=== PATIENT | male | born 1980 | race African-American/Black ===

== ENCOUNTER 2019-01-21 03:06 | Inpatient (IN) | payer SELFPAY ==
[2019-01-21 03:54] LABS: #Basophils 0.1 thou/uL (0.0-0.2); #Eosinphils 0.2 thou/uL (0.0-0.7); #Lymphocytes 2.1 thou/uL (1.20-3.40); #Monocytes 0.4 thou/uL (0.11-0.59); #Neutrophils 5.8 thou/uL (1.40-6.50); %Basophils 0.6 % (0.0-1.0); %Eosinophils 2.8 % (0.0-10.0); %Lymphocytes 23.9 % (21.0-51.0); %Monocytes 5.1 % (0.0-10.0); %Neutrophils 67.7 % (42.0-75.0); Hemoglobin 13.7 g/dL (14.0-18.0); Mean Corpuscular HGB CONC 32.8 g/dL (32.0-36.0); Mean Corpuscular Hemoglobin 30.9 pg (27.0-31.0); Mean Platelet Volume 11.1 fL (7.4-10.4); Platelet Count 120 thou/uL (130-400); RBC Distribution Width 12.7 % (11.5-14.5); Red Blood Cell (RBC) Count 4.43 mill/uL (4.70-6.10); White Blood Cell (WBC) Count 8.6 thou/uL (4.8-10.8)
[2019-01-21 04:15] LABS: ALT (SGPT) 22 U/L (8-55); AST (SGOT) 21 U/L (5-34); Alkaline Phosphatase 95 U/L (40-150); Anion Gap 11 mmol/L (10-20); BUN (Urea Nitrogen) 18 mg/dL (8.9-20.6); Bilirubin, Total 0.8 mg/dL (0.2-1.2); Calc. Creatinine Clearance 0 mL/min (70-130); Calcium 9.6 mg/dL (7.8-10.44); Carbon Dioxide 28 mmol/L (22-29); Chloride 102 mmol/L (98-107); Estimated GFR-MDRD 51; Glucose 129 mg/dL (70-105); Potassium 3.4 mmol/L (3.5-5.1); Sodium 138 mmol/L (136-145)
[2019-01-21 04:42] LABS: CKMB 1.8 ng/mL (0-6.6)
[2019-01-21] MEDS ORDERED: hydrALAZINE 20 MG/ML VIAL ONE (05:56)
[2019-01-21] MEDS ORDERED: Ondansetron ODT 4 MG TAB PO PRN (05:58)
[2019-01-21] MEDS ORDERED: Nicotine 14 MG PATCH TD PRN (05:58)
--- NOTE | 2019-01-21 05:58 | PDOC.FPRHP ---
- History of Present Illness Chief Complaint: SOB History of Present Illness: 38 yo M with PMH untreated HTN due to noncompliance presents to the ED with SOB and found to have significant HTN. 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 At home started to feel dizzy, went to bed. Awoke and noted SOB and chest tightness with exertion. Denies headache, vision changes, N/V. ED Course: Hydralazine 20 mg IV - Allergies/Adverse Reactions Allergies Allergy/AdvReac Type Severity Reaction Status Date / Time No Known Drug Allergies Allergy Unverified 01/21/19 06:07 - History PMHx: HTN PSHx: None FHx: HTN, sister-DM Social: Current smoker, 3/4 PPD x 17 yrs. No alcohol or drug use. - Review of Systems General: reports: other (dizziness). denies: fatigue Eyes: denies: vision changes Respiratory: reports: shortness of breath, exercise intolerance. denies: cough Cardiovascular: reports: chest pain. denies: palpitation, edema Gastrointestinal: denies: nausea, vomiting, diarrhea, constipation Genitourinary: denies: dysuria Skin: denies: rashes, lesions Musculoskeletal: denies: pain, tenderness Neurological: denies: syncope, weakness - Vital signs BP: 242/152 HR: 106 RR: 21 Tmax: 99.2 Pox: 94% on 2L Wt: 108 kg - Physical Exam Constitutional: NAD, awake, alert and oriented HEENT: normocephalic and atraumatic, PERRLA, EOMI, grossly normal vision, grossly normal hearing, MMM Heart: RRR, normal S1/S2, no murmurs/rubs/gallops, no edema Lungs: CTAB, no respiratory distress, no wheezing Abdomen: soft, non-tender, bowel sounds present, no masses/distention Musculoskeletal: normal structure, normal tone Neurological: no focal deficit Skin: no rash/lesions, good turgor FMR H&P: Results - Labs Result Diagrams: 01/21/19 03:47 01/21/19 03:47 Lab results: WBC 8.6 thou/uL (4.8-10.8) 01/21/19 03:47 Hgb 13.7 g/dL (14.0-18.0) L 01/21/19 03:47 Hct 41.6 % (42.0-52.0) L 01/21/19 03:47 MCV 94.0 fL (78.0-98.0) 01/21/19 03:47 Plt Count 120 thou/uL (130-400) L 01/21/19 03:47 Neutrophils % 67.7 % (42.0-75.0) 01/21/19 03:47 Sodium 138 mmol/L (136-145) 01/21/19 03:47 Potassium 3.4 mmol/L (3.5-5.1) L 01/21/19 03:47 Chloride 102 mmol/L (98-107) 01/21/19 03:47 Carbon Dioxide 28 mmol/L (22-29) 01/21/19 03:47 BUN 18 mg/dL (8.9-20.6) 01/21/19 03:47 Creatinine 1.80 mg/dL (0.7-1.3) H 01/21/19 03:47 Glucose 129 mg/dL (70-105) H 01/21/19 03:47 Calcium 9.6 mg/dL (7.8-10.44) 01/21/19 03:47 Total Bilirubin 0.8 mg/dL (0.2-1.2) 01/21/19 03:47 AST 21 U/L (5-34) 01/21/19 03:47 ALT 22 U/L (8-55) 01/21/19 03:47 Alkaline Phosphatase 95 U/L (40-150) 01/21/19 03:47 CK-MB (CK-2) 1.8 ng/mL (0-6.6) 01/21/19 03:47 Serum Total Protein 7.0 g/dL (6.0-8.3) 01/21/19 03:47 Albumin 4.0 g/dL (3.5-5.0) 01/21/19 03:47 FMR H&P: A/P - Problem List (1) Hypertensive emergency Current Visit: Yes Status: Acute Code(s): I16.1 - HYPERTENSIVE EMERGENCY (2) Elevated d-dimer Current Visit: Yes Status: Acute Code(s): R79.89 - OTHER SPECIFIED ABNORMAL FINDINGS OF BLOOD CHEMISTRY - Plan HTN urgency vs emergency - BP 240s/150s in ED. Has hydralazine ordered in ED but nothing has been given yet - currently asymptomatic - will see response to hydralazine and see if BP responds. May need to start on drip if resistant. Goal BP 200/100 for now. - check BP q1h - start chlorthalidone, patient could likely need second BP agent before discharge Hypokalemia - 3.4, will replace Elevated D-dimer - 1.43, will get CTA Indeterminate troponin - 0.044, will continue to trend - EKG with LVH and t wave inversion OBDULIO - Cr 1.8, monitor on am labs - likely 2/2 above Diet: HH Ppx: Lovenox PCP: none Dispo: admit to IMCU for close BP monitoring Case discussed with Dr. Marinelli. FMR H&P: Upper Level - Pertinent history 38 yo AAM who presents to ED with SOB and dizziness with mild exertional chest pain from home. He got off work at around midnight and when he got home did not feel well. He laid down for a bit thinking it would pass and it did not. At that time he decided to come in. He had otherwise been feeling well and denies any constitutional symptoms. He has prior dx of HTN and was on medications but stopped them when he moved here from [place]. Denies any vision changes, headache or current chest pain or shortness of breath. - Pertinent findings VS reviewed, hypertensive, intermittently tachycardic CXR reviewed: borderline cardiomegaly EKG: LVH, sinus tachcyardia, QTc 498 Gen: awake, alert, in no distress HEENT: NCAT, MMM, PERRL, EOMI, conjunctiva non-injected, optic disk not well seen, no visual field deficits CV: RRR, no murmur noted RESP: CTAB ABD: Soft, NTND EXT: no edema, pulses 2+ throughout Labs reviewed: indeterminate troponin, elevated Cr - Plan Date/Time: 01/21/19 0558 38 yo AAM with PMHx presents with hypertensive urgency vs. emergency 1. Hypertensive urgency vs. emergency - No neurologic deficits or ongoing symptoms - Unknown Cr baseline however indeterminate troponin likely 2/2 demand ischemia - Awaiting response to initial dose of hydralazine given in ED - If minimal to no improvement, will consider cardene drip and transfer to ICU - q30 minute BPs at this time - EKG shows LVH - Acute goal to lower 10-20% in first hour then 5-15% over subsequent 23 hours - Asymptomatic at this time 2. HTN - Known dx - Will start thiazide diuretic and consider addition of CCB if indicated 3. Elevated troponin - Will trend - No chest pain - Likely 2/2 demand ischemia 4. Elevated D-dimer - No symptoms at this time - Will plan for CTA when BP acutely managed Please see Dr. Pal's note for remainder of A/P I, Ricarda He MD, PGY-3, have evaluated this patient and agree with findings/ plan as outlined by corporate communications intern resident. Pertinent changes/additions are listed here.
[2019-01-21] MEDS ORDERED: Potassium Chloride 20 MEQ TAB PO SCH (07:15)
[2019-01-21] MEDS ORDERED: Labetalol HCl 100 MG/20 ML VIAL ONE (07:39)
[2019-01-21 07:46] LABS: Troponin I 0.065 ng/mL (< 0.028)
--- NOTE | 2019-01-21 07:48 | CT ---
CT arteriogram chest with IV contrast and 3-D imaging HISTORY: Chest pain. Dyspnea. FINDINGS: Good contrast opacification of the pulmonary arteries and thoracic aorta with normal branch ing of the great vessels. Nonenlarged, nonspecific lymph nodes are scattered about the mediastinum. Minimal atelectasis left upper lobe adjacent to the major fissure. No pleural fluid or pneumothorax. IMPRESSION: No CT evidence of pulmonary embolus.
--- NOTE | 2019-01-21 08:11 | RAD ---
PORTABLE CHEST ONE VIEW: Date: 01-21-19 Time: 3:43 a.m. History: Difficulty breathing. FINDINGS: Comparison made with exam of 01-19-11. The heart size is normal. The lungs are expanded without focal areas of consolidation, pneumothorax o r pleural effusions. There is continued mild elevation of the right hemidiaphragm. IMPRESSION: No acute process. POS: OFF
[2019-01-21] MEDS ORDERED: Chlorthalidone 25 MG TAB PO SCH (09:00)
[2019-01-21] MEDS ORDERED: Amlodipine 5 MG TAB PO SCH (09:00)
[2019-01-21] MEDS: Enoxaparin Sodium 40 MG/0.4 ML SYRINGE SC SCH (09:54)
[2019-01-21 10:35] LABS: Troponin I 0.068 ng/mL (< 0.028)
[2019-01-21] MEDS ORDERED: ISOVUE-370 76%-LOCM 1 ML ONE (10:58)
[2019-01-21 11:44] VITALS: BMI 41.6
--- NOTE | 2019-01-21 12:00 | PDOC.EVN ---
Event Note - Event Note Event Note: Discussed BP parameters 160/90s, not any lower.l Use antihypertensives PRN. Started on oral anti Htnsives. BP q1hr checks
--- NOTE | 2019-01-21 13:10 | ULT ---
Bilateral renal ultrasound CLINICAL INDICATION: Hypertensive emergency COMPARISON: None. FINDINGS: Right kidney: There is no evidence of a renal mass, renal calculus, or hydronephrosis seen. The right kidney measures 12 cm in length. Left kidney: There is no evidence of a renal mass, calculus, hydronephrosis. The left kidney measures 11 cm in length. Urinary bladder: Within normal limits for degree of distention. IMPRESSION: No evidence of hydronephrosis or renal cortical thinning.
[2019-01-21 13:18] LABS: Amphetamine Not Detected (NotDetected); Barbiturates Screen Not Detected (NotDetected); Benzodiazepine Screen Not Detected (NotDetected); Cocaine Metabolite Screen Not Detected (NotDetected); Medtox Control Line Valid? VALID (VALID); Medtox Reader # READER 1; Methadone Not Detected (NotDetected); Methamphetamine Not Detected (NotDetected); Opiate Screen Not Detected (NotDetected); Oxycodone Screen Not Detected (NotDetected); Phencyclidine (PCP) Not Detected (NotDetected); THC/Cannabinoid Screen Not Detected (NotDetected); Tricyclic Screen Not Detected (NotDetected)
[2019-01-21] MEDS: hydrALAZINE 20 MG/ML VIAL SLOW IVP PRN ×2 (14:29→15:43)
[2019-01-21 16:35] LABS: Troponin I 0.107 ng/mL (< 0.028)
[2019-01-21] MEDS: Acetaminophen 325 MG TAB PO PRN ×2 (17:25→23:18)
[2019-01-21] MEDS: Labetalol HCl 100 MG/20 ML VIAL SLOW IVP PRN ×2 (17:25→23:18)
--- NOTE | 2019-01-21 17:49 | HP ---
HISTORY OF PRESENT ILLNESS: I have examined the patient. I have discussed the case with Dr. Shirley Pal and agree with her assessment and plan. Briefly, Mr. Bae is a 38-year-old black man, who presented to our emergency room with a blood pressure of around 280/140. He felt dizzy and short of breath, and possibly had some chest tightness with exertion. In the event, he came to our ER and was subsequently admitted with at least hypertensive urgency. PHYSICAL EXAMINATION: VITAL SIGNS: His blood pressure initially was 240/150. His heart rate was 100. His temperature was 99.2 and his room air pulse ox was 94% on 2 L. GENERAL: By the time I examined the patient, he was awake and alert, still appearing with some mild shortness of breath, but no chest pain or tightness. He was completely alert and showing no signs of encephalopathy. EAR, NOSE, AND THROAT: Moist mucous membranes. No erythema or exudate is noted. NECK: Supple. CARDIAC: The PMI is in the fifth intercostal space. No gallop or murmur noted. LUNGS: Clear with no rales or wheezing. No use of accessory muscles. ABDOMEN: Flat and soft. No guarding, rebound, or rigidity. EXTREMITIES: No edema. NEUROLOGICAL: No focal deficits. LABORATORY DATA: CBC; white count is 8600, hemoglobin 13.7, hematocrit 41.6 with an MCV of 94. Chemistries; sodium 138, potassium 3.4, chloride 102, bicarb 28, BUN 18, creatinine 1.8, random glucose of 129. Troponins trended to 0.044 to 0.065 to 0.068, consistent likely with stress ischemia. His chest x-ray showed no acute process and normal heart size. CTA of the chest gotten for an elevated D-dimer did not show any evidence of pulmonary embolism. ASSESSMENT: Hypertensive urgency. PLAN: Admit to MICU, use parenteral p.r.n. medications as well as aggressive p.o. medications for his hypertension. Our goal for today is to get his pressure down around between 160 and 190 systolic. Job ID: [id number]
[2019-01-21] MEDS ORDERED: Hydrochlorothiazide 25 MG TAB PO SCH (21:00)
--- NOTE | 2019-01-22 01:25 | CON ---
DATE OF CONSULTATION: HISTORY OF PRESENT ILLNESS: Mr. Bae is a 38-year-old male who was told when he was in [place] 2 years ago that he had hypertension. He was given medicine back them, but never refilled any medicine and has not seen anybody locally. He presented with complaints of shortness of breath after getting off work as well some tight chest tightness. He subsequently was admitted with significant blood pressure elevations up to 242/152. CT angiogram was done showing no pulmonary emboli. He had no pulmonary edema. Renal ultrasound was done showing no cortical abnormalities or obstructive uropathy. He says he has been healthy prior to this. PAST MEDICAL HISTORY: Otherwise, unremarkable. FAMILY HISTORY: Positive for hypertension. SOCIAL HISTORY: He smokes, does not use drugs, does not drink. REVIEW OF SYSTEMS: Otherwise negative. PHYSICAL EXAMINATION: VITAL SIGNS: Blood pressure this afternoon is 196/114. He is afebrile. Heart rate in the 90s. HEENT: Pupils are equal sclerae is anicteric. Extraocular movements are intact. NECK: Supple. No lymphadenopathy. LUNGS: Clear. HEART: Regular rhythm. S1, S2 are normal. ABDOMEN: Soft and nontender. EXTREMITIES: Without clubbing, cyanosis, or edema. NEUROLOGIC: Grossly nonfocal. LABORATORY DATA: White count 8.6, hemoglobin 13.7, platelets 120,000. Sodium 138, potassium 3.4, chloride 102, bicarb 28, BUN 18, creatinine 1.8 at 3:47 am this morning. BNP was 256. IMPRESSION: Accelerated hypertension with symptoms likely related to untreated blood pressure issues. He is on a tiny dose of hydrochlorothiazide and starting dose of amlodipine. This is unlikely to control his blood pressure and q.a.m. drugs are very unlikely to control this. We would suggest more aggressive attempts at getting started on a medication regimen and try to get his blood pressure down between 140 and 170 systolic. I suspect we will see a rising creatinine as his blood pressure comes down. It is imperative that he find a local physician to care for his blood pressure. TIME SPENT: This is a 70-minute consult, 50% of the time spent in coordinating care. Job ID: [id number]
[2019-01-22] MEDS: Labetalol HCl 100 MG/20 ML VIAL SLOW IVP PRN (04:11)
[2019-01-22 05:37] LABS: ALT (SGPT) 22 U/L (8-55); AST (SGOT) 18 U/L (5-34); Albumin 3.8 g/dL (3.5-5.0); Alkaline Phosphatase 82 U/L (40-150); Anion Gap 13 mmol/L (10-20); BUN (Urea Nitrogen) 15 mg/dL (8.9-20.6); Calc. Creatinine Clearance 82 mL/min (70-130); Carbon Dioxide 28 mmol/L (22-29); Chloride 101 mmol/L (98-107); Estimated GFR-MDRD 50; Globulin 2.7 g/dL (2.4-3.5); Glucose 101 mg/dL (70-105); Protein, Total 6.5 g/dL (6.0-8.3); Sodium 139 mmol/L (136-145)
[2019-01-22] MEDS ORDERED: Potassium Chloride 40 MEQ in Premix Bag 1 BAG IVPB SCH (07:30)
[2019-01-22 08:13] LABS: CKMB 1.9 ng/mL (0-6.6)
[2019-01-22] MEDS ORDERED: Amlodipine 5 MG TAB PO SCH (08:42)
--- NOTE | 2019-01-22 08:48 | PDOC.FM ---
- Subjective Subjective: NAEO. Mild WYNNE with medications, denes SOB, CP, vision changes - Objective MAR Reviewed: Yes Vital Signs & Weight: Vital Signs (12 hours) Temp Pulse BP 01/22/19 07:08 98.6 F 01/22/19 04:11 90 195/123 H 01/22/19 04:00 98.8 F 01/22/19 00:00 99.7 F H 01/21/19 23:18 97 189/116 H Weight Weight 108 kg Most Recent Monitor Data Heart Rate from ECG 75 NIBP 167/109 NIBP BP-Mean 128 Respiration from ECG 17 SpO2 91 I&O: 01/21/19 01/22/19 01/23/19 06:59 06:59 06:59 Intake Total 500 Balance 500 Result Diagrams: 01/21/19 03:47 01/22/19 04:55 Phys Exam - Physical Examination Constitutional: NAD HEENT: PERRLA, moist MMs Neck: no nodes, full ROM Respiratory: no wheezing, clear to auscultation bilateral Cardiovascular: RRR s4 Neurological: non-focal, moves all 4 limbs Psychiatric: normal affect, A&O x 3 Dx/Plan (1) Chronic hypertension Code(s): I10 - ESSENTIAL (PRIMARY) HYPERTENSION Status: Acute (2) Hypertensive emergency Code(s): I16.1 - HYPERTENSIVE EMERGENCY Status: Acute - Plan Plan: HTN urgency - Emergency resolved, asx - BPs still uncontrolled, requiring IV meds - Inc qAM po meds of amlodipine & HCTZ - Continue BP q1hr Hypokalemia - 3.0 will replace -Start on po potassium if remains low Elevated D-dimer - CTA, neg for PE Indeterminate troponin - 0.2 --> will rpt one now, if elevated get EKG - EKG with LVH and t wave inversion OBDULIO vs CKD - Cr 1.8, monitor on am labs, stable Diet: HH Ppx: Lovenox PCP: none Dispo: BP control, if unimproved this morning, willl add third hypertensive, inc current dosing Case discussed with Dr. Marinelli.
[2019-01-22] MEDS ORDERED: Hydrochlorothiazide 25 MG TAB PO SCH (09:00)
[2019-01-22] MEDS: Amlodipine 10 MG TAB PO SCH (09:37)
[2019-01-22] MEDS: Enoxaparin Sodium 40 MG/0.4 ML SYRINGE SC SCH (09:38)
[2019-01-22 09:52] LABS: #Eosinphils 0.1 thou/uL (0.0-0.7); #Lymphocytes 1.5 thou/uL (1.20-3.40); #Monocytes 0.6 thou/uL (0.11-0.59); #Neutrophils 6.3 thou/uL (1.40-6.50); %Basophils 0.3 % (0.0-1.0); %Eosinophils 1.3 % (0.0-10.0); %Lymphocytes 17.8 % (21.0-51.0); %Monocytes 6.4 % (0.0-10.0); %Neutrophils 74.1 % (42.0-75.0); Mean Corpuscular HGB CONC 32.1 g/dL (32.0-36.0); Mean Corpuscular Hemoglobin 29.9 pg (27.0-31.0); Mean Corpuscular Volume 93.2 fL (78.0-98.0); Mean Platelet Volume 11.1 fL (7.4-10.4); Platelet Count 125 thou/uL (130-400); RBC Distribution Width 12.9 % (11.5-14.5); Red Blood Cell (RBC) Count 4.35 mill/uL (4.70-6.10); White Blood Cell (WBC) Count 8.6 thou/uL (4.8-10.8)
[2019-01-22 09:58] LABS: Hemoglobin A1c 4.4 % (4.0-6.0)
[2019-01-22 10:22] LABS: Cardiac Risk 3.9 (Less than 4.5)
[2019-01-22] MEDS ORDERED: Potassium Chloride 20 MEQ TAB PO SCH (10:30)
[2019-01-22] MEDS: cloNIDine 0.2 MG TAB PO SCH ×2 (11:30→21:21)
[2019-01-22 11:52] LABS: CKMB 1.9 ng/mL (0-6.6)
[2019-01-22] MEDS: Potassium Chloride 20 MEQ in Premix Bag 1 BAG IVPB SCH (12:27)
--- NOTE | 2019-01-22 13:44 | PRG ---
DATE OF SERVICE: 01/22/2019 SUBJECTIVE: Mr. Bae's blood pressure is still elevated. We are adjusting his medications daily. We had been trending his troponins and they have now risen until to the very lowest NSTEMI area. We will consult Cardiology. He has had no chest pain since admission to the hospital. Otherwise, stable. We will await recommendations from Cardiology. We will continue to adjust blood pressure medication with a goal of at least 160/90 or less. Job ID: [id number]
--- NOTE | 2019-01-22 14:11 | PRG ---
DATE OF SERVICE: 01/22/2019 SUBJECTIVE: Phil Bae is still having significant elevations of blood pressure. Added Catapres to be given this morning with his Norvasc. This morning, he was 190/119. After lunch, he was 169/104. We will probably need to continue with aggressive medication adjustments. He is not having any pulmonary symptoms. Denies shortness of breath. His lungs are clear. White count is normal, hemoglobin is normal, and platelets 125,000. Electrolytes remarkable for potassium of 3, this can be replaced orally. His creatinine is 1.83 and 1.80 yesterday, which is essentially unchanged. We will continue to follow. Job ID: [id number]
--- NOTE | 2019-01-22 16:44 | CON ---
DATE OF CONSULTATION: 01/22/2019 REASON FOR CONSULTATION: Hypertensive emergency. HISTORY OF PRESENT ILLNESS: Mr. Bae is a pleasant 38-year-old white gentleman, who comes to the hospital for increased shortness of breath. When he came in, his blood pressure was 260/130s. He received IV hydralazine and labetalol, got it down, and admitted for further evaluation. During his hospital stay, we have managed to up titrate his blood pressure medications to the point where the blood pressure on my evaluation is 130s/70s. He feels back to normal. He denies any chest pain, tightness or pressure. He only had shortness of breath when he came in. 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 PAST MEDICAL HISTORY: Hypertension. PAST SURGICAL HISTORY: None. FAMILY HISTORY: Hypertension and a sister with diabetes. SOCIAL HISTORY: Smokes 3/4 of pack a day for the last 17 years. No drug use. No alcohol. REVIEW OF SYSTEMS: A 12-point review of systems was done and was found to be negative unless stated in the history of present illness. OUTPATIENT MEDICATIONS: None. ALLERGIES: NO KNOWN DRUG ALLERGIES. PHYSICAL EXAMINATION: VITAL SIGNS: Temperature 98.2, pulse 76, respiratory rate 21, sat 94% on 3 L, and blood pressure 132/83. GENERAL: Awake, alert, and oriented x3, in no distress. HEENT: Normocephalic and atraumatic. NECK: Supple. LUNGS: Clear. CARDIOVASCULAR: S1 and S2. No S3 or S4. No murmurs. No rubs. ABDOMEN: Soft. Positive bowel sounds. EXTREMITIES: No edema. SKIN: Warm and dry. LABORATORY DATA: Laboratory work was reviewed. Toxicology, UDS was negative. Hematology with a white count of 8.6, hemoglobin of 13, hematocrit of 40, and platelet count of 125. Coags, D-dimer was elevated. Chemistries were unremarkable. Potassium is 3.0. Hemoglobin A1c is 4.4. Troponin was 0.28 and 0.14 with a normal CK-MB and triglycerides of 78. Cholesterol total of 137, LDL of 86, and HDL of 35. Creatinine is actually at baseline at 1.[address] angio of the chest showed no evidence of pulmonary embolism. ASSESSMENT: Hypertensive emergency. PLAN: Current regimen is adequate. Blood pressure is much better currently. Clonidine actually did the trick. This is scheduled at every 2 hours. 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 Otherwise, I would continue the other medications. Echocardiogram is pending. Thank you for letting me to participate in the care of your patient. We will follow. Job ID: [id number]
[2019-01-22] MEDS ORDERED: Atorvastatin Calcium 20 MG TAB PO SCH (21:00)
[2019-01-22] MEDS ORDERED: Simvastatin 40 MG TAB PO SCH (21:00)
[2019-01-22] MEDS: Hydrochlorothiazide 25 MG TAB PO SCH (21:21)
--- NOTE | 2019-01-23 06:44 | PDOC.FM ---
- Subjective Subjective: Pt doing well. Denies WYNNE, chest pain, vision changes, SOB. Ready to go home. - Objective MAR Reviewed: Yes Vital Signs & Weight: Vital Signs (12 hours) Temp BP 01/23/19 03:52 97.6 F 01/22/19 23:42 98.0 F 01/22/19 21:21 157/107 H 01/22/19 19:35 97.6 F Weight Weight 108 kg Most Recent Monitor Data Heart Rate from ECG 78 NIBP 143/90 NIBP BP-Mean 107 Respiration from ECG 17 SpO2 94 I&O: 01/21/19 01/22/19 01/23/19 06:59 06:59 06:59 Intake Total 500 1360 Balance 500 1360 Result Diagrams: 01/23/19 06:03 01/23/19 06:03 Phys Exam - Physical Examination Constitutional: NAD HEENT: PERRLA, moist MMs Respiratory: no wheezing, clear to auscultation bilateral Cardiovascular: RRR, no significant murmur Gastrointestinal: soft, non-tender Neurological: non-focal, moves all 4 limbs Psychiatric: normal affect, A&O x 3 Dx/Plan (1) Hypertensive emergency Code(s): I16.1 - HYPERTENSIVE EMERGENCY Status: Resolved (2) Chronic hypertension Code(s): I10 - ESSENTIAL (PRIMARY) HYPERTENSION Status: Chronic (3) CKD (chronic kidney disease) stage 3, GFR 30-59 ml/min Code(s): N18.3 - CHRONIC KIDNEY DISEASE, STAGE 3 (MODERATE) Status: Acute (4) Dyslipidemia Code(s): E78.5 - HYPERLIPIDEMIA, UNSPECIFIED Status: Acute - Plan Plan: #Hypertensive emergency, resolved - Had not required IV antihypertensives >24 hours - BPs stable <160/<110 on clonidine, hctz, and amlodipine - Pending transfer out of tele to floors - Pending TTE for further eval - Had discussion with patient about AE of noncompliance with clonidine. Expresses motiviation to take meds daily with routine follow up. #cHTN -see above #Hypokalemia - 3.2, will start on IV potassium maintenance #CKD, stage 3 -Creatinine 1.83, stable -Likely CKD 2/2 uncontrolled and untreated HTN #Elevated D-dimer - CTA, neg for PE #Indeterminate troponin - EKG yesterday wnl, troponins trending donw - Likely 2/2 to demand ischemia, poor LV myoperfusion with LVH Diet: HH Ppx: Lovenox PCP: none Dispo: BP well controlled for past 20 hours on PO meds. Patient says taking BID meds not a problem with work schedule. Understands AE if noncompliant with clonidine. Agrees for f/u at our office. Will provide contact information. Possible d/c today pending clinical course. Case discussed with Dr. Marinelli.
[2019-01-23 06:51] LABS: #Basophils 0.1 thou/uL (0.0-0.2); #Eosinphils 0.3 thou/uL (0.0-0.7); #Lymphocytes 1.7 thou/uL (1.20-3.40); #Monocytes 0.6 thou/uL (0.11-0.59); #Neutrophils 4.6 thou/uL (1.40-6.50); %Basophils 0.8 % (0.0-1.0); %Eosinophils 3.5 % (0.0-10.0); %Lymphocytes 23.3 % (21.0-51.0); %Monocytes 8.7 % (0.0-10.0); %Neutrophils 63.7 % (42.0-75.0); Hemoglobin 13.3 g/dL (14.0-18.0); Mean Corpuscular HGB CONC 33.1 g/dL (32.0-36.0); Mean Corpuscular Volume 93.7 fL (78.0-98.0); Mean Platelet Volume 11.5 fL (7.4-10.4); Platelet Count 124 thou/uL (130-400); RBC Distribution Width 12.7 % (11.5-14.5); Red Blood Cell (RBC) Count 4.28 mill/uL (4.70-6.10); White Blood Cell (WBC) Count 7.2 thou/uL (4.8-10.8)
[2019-01-23 07:22] LABS: ALT (SGPT) 23 U/L (8-55); AST (SGOT) 17 U/L (5-34); Albumin 3.9 g/dL (3.5-5.0); Alkaline Phosphatase 84 U/L (40-150); Anion Gap 12 mmol/L (10-20); BUN (Urea Nitrogen) 16 mg/dL (8.9-20.6); Bilirubin, Total 1.3 mg/dL (0.2-1.2); Calc. Creatinine Clearance 81 mL/min (70-130); Calcium 9.5 mg/dL (7.8-10.44); Carbon Dioxide 29 mmol/L (22-29); Chloride 99 mmol/L (98-107); Estimated GFR-MDRD 49; Globulin 2.9 g/dL (2.4-3.5); Glucose 95 mg/dL (70-105); Potassium 3.2 mmol/L (3.5-5.1); Protein, Total 6.8 g/dL (6.0-8.3); Sodium 137 mmol/L (136-145)
--- NOTE | 2019-01-23 07:22 | EKG ---
Test Reason : Blood Pressure : / mmHG Vent. Rate : 077 BPM Atrial Rate : 077 BPM P-R Int : 170 ms QRS Dur : 118 ms QT Int : 422 ms P-R-T Axes : 049 -13 207 degrees QTc Int : 477 ms Normal sinus rhythm Possible Left atrial enlargement Left ventricular hypertrophy with QRS widening and repolarization abnormality Abnormal ECG When compared with ECG of 21-JAN-2019 03:17, (Unconfirmed) Inverted T waves have replaced nonspecific T wave abnormality in Inferior leads Confirmed by ODETTE BOLANOS ([id number]) on 01/23/2019 7:22:23 AM Referred By: NOLAN *R Confirmed By:ODETTE BOLANOS
[2019-01-23] MEDS: Amlodipine 10 MG TAB PO SCH (08:19)
[2019-01-23] MEDS: Enoxaparin Sodium 40 MG/0.4 ML SYRINGE SC SCH (08:19)
[2019-01-23] MEDS: Hydrochlorothiazide 25 MG TAB PO SCH (08:20)
[2019-01-23] MEDS: cloNIDine 0.2 MG TAB PO SCH (08:20)
[2019-01-23 08:21] VITALS: BP 144/94
[2019-01-23 10:26] LABS: Bilirubin, Direct 0.4 mg/dL (0.1-0.3)
[2019-01-23 10:58] VITALS: TEMP 97.1
--- NOTE | 2019-01-23 11:16 | PRG ---
DATE OF SERVICE: 01/23/2019 SUBJECTIVE: Mr. Bae is doing well, says he is ready to go home. OBJECTIVE: VITAL SIGNS: Blood pressure 144/94, 146/89 later this morning. LUNGS: Clear. HEART: Regular rhythm. ABDOMEN: Soft. LABORATORY DATA: White count 7.2, hemoglobin 13.3, and platelets 124. Electrolytes were unremarkable. Creatinine is 1.85, which is stable. IMPRESSION: 1. Probable early hypertensive renal disease. 2. Accelerated hypertension on presentation, now reasonably well controlled. His mother has a blood pressure cuff at home. I have asked him to start a diary taking his blood pressure in the morning and in the evening. He plans to establish relationship with his mother's position and follow up with that doctor. He needs 2 weeks of blood pressure measurements and then he can follow up with his doctor and have medication adjusted if needed. 3. Continue Norvasc now, 0.2 of Catapres twice a day, both of which are generic drugs. I would not keep him on a diuretic twice a day. This will likely give him nocturia and he may do reasonably well without a diuretic. His individual drugs should be maximized before we had a third potassium depleting diuretic. 4. I do believe he is stable for discharge. Job ID: [id number]
--- NOTE | 2019-01-23 12:46 | PRG ---
DATE OF SERVICE: 01/23/2019 Mr. Bae looks and feels much better this morning. Since starting the clonidine, his blood pressures dropped nicely and is currently around 160/100. He is again completely asymptomatic. I feel it is fine to discharge him on amlodipine, hydrochlorothiazide, and for the time being, clonidine although he will be weaned off this at a later date. We also would like him to see us in the clinic early next week for blood pressure recheck. Job ID: [id number]
[2019-01-23] MEDS ORDERED: Potassium Chloride 20 MEQ TAB PO SCH (17:00)
--- NOTE | 2019-01-24 05:05 | DIS ---
DATE OF ADMISSION: 01/21/2019 DATE OF DISCHARGE: 01/23/2019 RESIDENT: Irina Zayas, PGY-1 CONSULTS: Cardiology, Dr. Marinelli. PROCEDURES AND IMAGIN. Transthoracic echo: Read pending. 2. Renal ultrasound. No evidence of hydronephrosis or renal cortical thickening. 3. Chest thorax CTA: Negative for PE. 4. Chest x-ray: No acute cardiopulmonary processes. PRIMARY DIAGNOSES: 1. Hypertensive emergency secondary to uncontrolled hypertension. 2. Uncontrolled hypertension secondary to medication noncompliance. 3. Dyslipidemia. 4. Elevated BNP of 256. 5. Chronic kidney disease. 6. Direct hyperbilirubinemia. DISCHARGE MEDICATIONS: 1. Amlodipine 10 mg p.o. daily. 2. Clonidine 0.2 p.o. b.i.d. 3. Hydrochlorothiazide 12.5 mg p.o. b.i.d. 4. Atorvastatin 40 mg p.o. b.i.d. 5. K-Dur 20 mEq p.o. b.i.d. 6. Nicotine patch. DISCONTINUED MEDICATIONS: None. HOSPITAL COURSE: Mr. Phil Bae is a 38-year-old male with HTN who presented to the ER for generalized symptoms of dizziness, SOB, chest tightness. His blood pressures were in the 270 systolic over 100 diastolic. He was admitted for emergency for his blood pressure and symptoms. It is unsure whether there was any definite endorgan damage. He had an inc. creatinine (with no prior baseline) and indeterminate tropnin. EKG did show LVH. He was not started on a CCB drip but received IV antihypertensives with a more than adequate drop in his BPs. Thus decision was made to not start a drip. He was admitted to the IMCU and care was taken to slowly lower the blood pressure at the appropriate way in order to avoid hypoperfusion. Patient's symptoms resolved over the course of his stay as BP control was achieved. Patient did not endorse a personal history of HTN but also has not seen a PCP for a long time. His hospitalization was likely BP exacerbation from not taking medications. His hospital course was complicated by initially [id number] hypertension and persistently indeterminate troponins. Thus, cardiology was consulted. However, due to improvement of troponins with more aggressive BP lowering and no EKG changes, there was no further intervention required. Eventually, his blood pressures remained stable over a 24-hour period on a regimen of clonidine, hydrochlorothiazide and amlodipine. There was concern for patient's compliance with clonidine; however he agreed to compliance and expressed understanding of consequences of not taking all his medications consistently. Education was provided in regard to the DASH diet and overall hypertensive education and he plans to follow up in our office on Saturday. In addition, the patient did have a direct hyperbilirubinemia in which he was advised to continue outpatient care for. DISCHARGE INSTRUCTIONS: 1. Location: Home. 2. Diet: Heart healthy, low-salt diet. 3. Activity: As tolerated. 4. Followup: a. Please follow up at [facility] to establish care b. Please follow up for repaet BMP, can increase potassium requirements as needed from concomintant HCTZ use c. Please follow up for direct hyperbilirubinemia. d. Please follow up for suspected underlying VICTOR M. Consider sleep study. e. Pending renin/aldosteron levels Job ID: [id number] MTDD
[2019-01-24] MEDS ORDERED: Potassium Chloride 20 MEQ TAB PO SCH (08:00)
[2019-01-24 14:09] LABS: Renin Activity 4.208 ng/mL/hr (0.167-5.380)
--- NOTE | 2019-01-25 14:00 | EKG ---
Test Reason : Blood Pressure : / mmHG Vent. Rate : 079 BPM Atrial Rate : 079 BPM P-R Int : 160 ms QRS Dur : 110 ms QT Int : 420 ms P-R-T Axes : 023 -01 205 degrees QTc Int : 481 ms Normal sinus rhythm Possible Left atrial enlargement Left ventricular hypertrophy with repolarization abnormality Prolonged QT Abnormal ECG When compared with ECG of 22-JAN-2019 10:58, No significant change was found Confirmed by ODETTE BOLANOS ([id number]) on 01/25/2019 2:00:11 PM Referred By: RODNEY Palomaresr Confirmed By:ODETTE BOLANOS
== END 2019-01-23 12:40 | disposition home or self-care (01) | DRG 305 ==
LOC: ERS 03:06 → OBSVTOIN 05:10 → ERHOLD 05:10 → IMCU/EMU 09:07
PROVIDERS: ADMIT Family Medicine; ATTEND Family Medicine
DX: I16.1 Hypertensive emergency (principal); I24.8 Other forms of acute ischemic heart disease; E87.6 Hypokalemia; R79.1 Abnormal coagulation profile; F17.210 Nicotine dependence, cigarettes, uncomplicated; E78.5 Hyperlipidemia, unspecified; N18.3 Chronic kidney disease, stage 3 (moderate); I12.9 Hypertensive chronic kidney disease with stage 1 through stage 4 chronic kidney disease, or unspecified chronic kidney disease; Z91.14 Patient's other noncompliance with medication regimen
CPT/HCPCS: 36415; 71045; 71275; 76770; 80053; 80061; 80306; 82088; 82248; 82553; 83036; 83540; 83735; 83880; 84244; 84443; 84484; 85025; 85379; 93005; 93010; 93306; 96374; 96375; J0360; J1650; Q9966

== ENCOUNTER 2022-03-09 20:18 | Inpatient (IN) | payer SELFPAY ==
[~2022-03-09 20:18] MED LIST: Iopamidol-370 76% 500 ML 1 ML ONE
[2022-03-09] MEDS ORDERED: niCARdipine 25 MG/10 ML VIAL ONE (20:31)
[2022-03-09] MEDS ORDERED: Nitroglycerin 0.4 MG TAB 1 EACH ONE ×2 (20:32→20:40)
[2022-03-09 20:47] LABS: Hemoglobin 10.9 g/dL (14.0-18.0); Mean Corpuscular HGB CONC 33.1 g/dL (32.0-36.0); Mean Corpuscular Hemoglobin 30.2 pg (27.0-31.0); Mean Corpuscular Volume 91.2 fL (78.0-98.0); RBC Distribution Width 13.1 % (11.5-14.5); White Blood Cell (WBC) Count 12.7 thou/uL (4.8-10.8)
[2022-03-09 21:07] LABS: ALT (SGPT) 31 U/L (8-55); AST (SGOT) 50 U/L (5-34); Albumin 3.3 g/dL (3.5-5.0); Alkaline Phosphatase 60 U/L (40-110); Anion Gap 18 mmol/L (10-20); BUN (Urea Nitrogen) 64 mg/dL (8.9-20.6); Bilirubin, Total 0.9 mg/dL (0.2-1.2); Calc. Creatinine Clearance 0 mL/min (70-130); Calcium 8.3 mg/dL (7.8-10.44); Carbon Dioxide 21 mmol/L (22-29); Chloride 95 mmol/L (98-107); Globulin 2.7 g/dL (2.4-3.5); Glucose 129 mg/dL (70-105); Magnesium 1.9 mg/dL (1.6-2.6); Potassium 3.4 mmol/L (3.5-5.1); Sodium 131 mmol/L (136-145)
[2022-03-09 21:10] LABS: #Basophils 0.1 thou/uL (0.0-0.2); #Eosinphils 0.2 thou/uL (0.0-0.7); #Lymphocytes 2.1 thou/uL (1.20-3.40); #Neutrophils 9.3 thou/uL (1.40-6.50); %Basophils 0.6 % (0.0-1.0); %Eosinophils 1.6 % (0.0-10.0); %Lymphocytes 16.2 % (21.0-51.0); %Neutrophils 73.5 % (42.0-75.0); Mean Platelet Volume 11.1 fL (7.4-10.4); Platelet Count 97 thou/uL (130-400); Platelet Morphology Comment Appears Decreased; RBC Morphology Normal
[2022-03-09 21:39] LABS: CKMB 10.3 ng/mL (0-6.6)
[2022-03-09] MEDS ORDERED: HYDROcodone/Acetaminophen 5/325 mg Tablet PO PRN (21:46)
[2022-03-09] MEDS ORDERED: Ondansetron PF 4 MG/2 ML Vial IVP PRN (21:46)
[2022-03-09] MEDS ORDERED: Nitroglycerin 0.4 MG TAB (25 Tab Bottle) SL PRN (21:46)
[2022-03-09] MEDS ORDERED: Fioricet 325/50/40 mg Tablet PO PRN (21:51)
[2022-03-09] MEDS ORDERED: Aspirin Chewable 81 MG TAB PO SCH (22:00)
[2022-03-09] MEDS ORDERED: Metoprolol Tartrate 50 MG TAB PO SCH (22:15)
[2022-03-09] MEDS ORDERED: Sodium Bicarb 50 MEQ/50 ML Abboject 8.4% SYRINGE IVP SCH (22:15)
[2022-03-09] MEDS ORDERED: Potassium Chloride 20 MEQ TAB PO SCH (22:15)
[2022-03-09 23:11] VITALS: BMI 32.8
[2022-03-09] MEDS ORDERED: Sodium Bicarb 50 MEQ/50 ML VIAL IVP SCH (23:15)
[2022-03-10] MEDS: niCARdipine 25 MG in Sodium Chloride 0.9% 250 ML 250 ML IVPB SCH ×2 (00:03→04:49)
[2022-03-10 00:06] LABS: Troponin I 0.485 ng/mL (< 0.028)
[2022-03-10 01:09] LABS: SARS-CoV-2 NAA Rapid Test Not Detected (NotDetected)
[2022-03-10 03:26] LABS: ALT (SGPT) 31 U/L (8-55); AST (SGOT) 43 U/L (5-34); Alkaline Phosphatase 59 U/L (40-110); Anion Gap 16 mmol/L (10-20); BUN (Urea Nitrogen) 64 mg/dL (8.9-20.6); Bilirubin, Total 0.8 mg/dL (0.2-1.2); Calc. Creatinine Clearance 20 mL/min (70-130); Carbon Dioxide 24 mmol/L (22-29); Cardiac Risk 3.7 (Less than 4.5); Chloride 94 mmol/L (98-107); Cholesterol 153 mg/dl (< 200 Desired); Globulin 2.5 g/dL (2.4-3.5); Glucose 124 mg/dL (70-105); HDL Cholesterol 41 mg/dL (>60 Neg Risk); LDL Cholesterol, Calculated 92 mg/dL; Potassium 3.2 mmol/L (3.5-5.1); Protein, Total 5.5 g/dL (6.0-8.3); Sodium 131 mmol/L (136-145); Triglycerides 99 mg/dL (Less than 150)
[2022-03-10 03:36] LABS: Troponin I 0.537 ng/mL (< 0.028)
[2022-03-10] MEDS: Famotidine 20 MG TAB PO SCH (08:04)
[2022-03-10] MEDS: Metoprolol Tartrate 50 MG TAB PO SCH ×2 (08:04→20:22)
[2022-03-10] MEDS ORDERED: Magnesium 2 GM/50 ML(in water) 2 GM in Premix Bag 1 BAG IVPB SCH (09:00)
[2022-03-10] MEDS ORDERED: NIFEdipine XL 30 MG TAB PO SCH (09:00)
[2022-03-10] MEDS: Albumin 25% 25 GM/100 ML BOT IVPB SCH ×3 (09:25→20:23)
[2022-03-10 09:39] LABS: Hemoglobin A1c 5.3 % (4.0-6.0)
[2022-03-10 09:46] LABS: Bacteria/HPF None Seen HPF (None Seen); Bilirubin Negative (Negative); Blood, Urine 3+ (Negative); Clarity Clear (Clear); Glucose, Urine (Dipstick) Normal (Negative); Ketone, Urine Negative (Negative); Leukocyte Negative Leu/uL (Negative); Nitrite Negative (Negative); Protein, Urine (Dipstick) 200 mg/dL (Neg-Trace); RBC/HPF 0-3 HPF (0-3); Specific Gravity, Urine 1.015 (1.002-1.036); Squamous Epithelial None Seen HPF (0-3); Urobilinogen Normal mg/dL (Less than 2); WBC/HPF 0-3 HPF (0-3); pH, Urine 6.5 (5.0-9.0)
[2022-03-10 09:50] LABS: Troponin I 1.017 ng/mL (< 0.028)
[2022-03-10 09:53] LABS: Amphetamine Not Detected (NotDetected); Barbiturates Screen Not Detected (NotDetected); Benzodiazepine Screen Not Detected (NotDetected); Cocaine Metabolite Screen Not Detected (NotDetected); Methadone Not Detected (NotDetected); Methamphetamine Not Detected (NotDetected); Opiate Screen Not Detected (NotDetected); Oxycodone Screen Not Detected (NotDetected); Phencyclidine (PCP) Not Detected (NotDetected); THC/Cannabinoid Screen Not Detected (NotDetected); Tricyclic Screen Not Detected (NotDetected)
[2022-03-10 10:11] LABS: Creatinine, Urine 63.88 mg/dL (63-166)
[2022-03-10] MEDS: Atorvastatin Calcium 40 MG TAB PO SCH (20:22)
[2022-03-10] MEDS: hydrALAZINE 20 MG/ML VIAL SLOW IVP PRN (23:20)
[2022-03-11] MEDS: hydrALAZINE 20 MG/ML VIAL SLOW IVP PRN ×2 (04:07→15:41)
[2022-03-11] MEDS: Albumin 25% 25 GM/100 ML BOT IVPB SCH (04:08)
[2022-03-11 04:47] LABS: #Eosinphils 0.3 thou/uL (0.0-0.7); #Monocytes 0.8 thou/uL (0.11-0.59); #Neutrophils 5.4 thou/uL (1.40-6.50); %Basophils 0.6 % (0.0-1.0); %Eosinophils 3.8 % (0.0-10.0); %Lymphocytes 23.1 % (21.0-51.0); %Monocytes 8.8 % (0.0-10.0); %Neutrophils 63.8 % (42.0-75.0); Hemoglobin 9.3 g/dL (14.0-18.0); Mean Corpuscular HGB CONC 33.7 g/dL (32.0-36.0); Mean Corpuscular Hemoglobin 31.2 pg (27.0-31.0); Mean Corpuscular Volume 92.4 fL (78.0-98.0); Mean Platelet Volume 11.6 fL (7.4-10.4); Platelet Count 89 thou/uL (130-400); RBC Distribution Width 13.3 % (11.5-14.5); Red Blood Cell (RBC) Count 2.99 mill/uL (4.70-6.10); White Blood Cell (WBC) Count 8.5 thou/uL (4.8-10.8)
[2022-03-11 05:03] LABS: ALT (SGPT) 26 U/L (8-55); AST (SGOT) 31 U/L (5-34); Albumin 3.3 g/dL (3.5-5.0); Alkaline Phosphatase 51 U/L (40-110); Anion Gap 15 mmol/L (10-20); BUN (Urea Nitrogen) 67 mg/dL (8.9-20.6); Bilirubin, Total 0.5 mg/dL (0.2-1.2); Calc. Creatinine Clearance 19 mL/min (70-130); Calcium 8.3 mg/dL (7.8-10.44); Carbon Dioxide 25 mmol/L (22-29); Chloride 97 mmol/L (98-107); Glucose 100 mg/dL (70-105); Magnesium 2.3 mg/dL (1.6-2.6); Potassium 3.3 mmol/L (3.5-5.1); Protein, Total 5.3 g/dL (6.0-8.3); Sodium 134 mmol/L (136-145)
[2022-03-11 05:20] LABS: Critical Call Chem Troponin I 2NO.AL
[2022-03-11 05:49] LABS: CKMB 7.6 ng/mL (0-6.6); Critical Call CKMB 2NO.AB1
[2022-03-11] MEDS ORDERED: hydrALAZINE 25 MG TAB PO SCH (06:00)
[2022-03-11] MEDS ORDERED: NIFEdipine XL 30 MG TAB PO SCH ×3 (09:00→16:15)
[2022-03-11] MEDS: Carvedilol 25 MG TAB PO SCH ×2 (09:31→15:42)
[2022-03-11] MEDS: Famotidine 20 MG TAB PO SCH (09:31)
[2022-03-11] MEDS ORDERED: Minoxidil 2.5 MG TAB PO SCH (11:45)
[2022-03-11] MEDS: Nitroglycerin 2% Ointment 1 INCH/1 GM Packet TOP SCH ×2 (14:36→20:24)
[2022-03-11] MEDS: Acetaminophen 325 MG TAB PO PRN (17:17)
[2022-03-11] MEDS: Atorvastatin Calcium 40 MG TAB PO SCH (20:25)
[2022-03-11] MEDS: HYDROcodone/Acetaminophen 5/325 mg Tablet PO PRN (20:25)
[2022-03-12] MEDS: Acetaminophen 325 MG TAB PO PRN (04:22)
[2022-03-12] MEDS: HYDROcodone/Acetaminophen 5/325 mg Tablet PO PRN (04:22)
[2022-03-12] MEDS: Nitroglycerin 2% Ointment 1 INCH/1 GM Packet TOP SCH ×3 (04:23→21:38)
[2022-03-12 05:04] LABS: #Basophils 0.1 thou/uL (0.0-0.2); #Eosinphils 0.3 thou/uL (0.0-0.7); #Lymphocytes 2.1 thou/uL (1.20-3.40); #Monocytes 0.8 thou/uL (0.11-0.59); #Neutrophils 5.8 thou/uL (1.40-6.50); %Basophils 0.8 % (0.0-1.0); %Eosinophils 3.6 % (0.0-10.0); %Monocytes 8.4 % (0.0-10.0); %Neutrophils 64.2 % (42.0-75.0); Hemoglobin 9.3 g/dL (14.0-18.0); Mean Corpuscular HGB CONC 33.5 g/dL (32.0-36.0); Mean Corpuscular Hemoglobin 31.4 pg (27.0-31.0); Mean Corpuscular Volume 93.8 fL (78.0-98.0); Mean Platelet Volume 10.4 fL (7.4-10.4); Platelet Count 113 thou/uL (130-400); RBC Distribution Width 13.7 % (11.5-14.5); Red Blood Cell (RBC) Count 2.96 mill/uL (4.70-6.10)
[2022-03-12 05:16] LABS: Anion Gap 15 mmol/L (10-20); BUN (Urea Nitrogen) 69 mg/dL (8.9-20.6); Calc. Creatinine Clearance 18 mL/min (70-130); Calcium 9.2 mg/dL (7.8-10.44); Carbon Dioxide 25 mmol/L (22-29); Chloride 101 mmol/L (98-107); Glucose 101 mg/dL (70-105); Phosphorus 5.8 mg/dL (2.3-4.7); Potassium 3.4 mmol/L (3.5-5.1); Sodium 138 mmol/L (136-145)
[2022-03-12 05:35] LABS: HBSAg Index 0.24 S/CO (0-0.99); Hep B Surf Ag Non-Reactive S/CO (NonReactive)
[2022-03-12] MEDS: Famotidine 20 MG TAB PO SCH (08:52)
[2022-03-12] MEDS: Carvedilol 25 MG TAB PO SCH ×2 (08:52→17:28)
[2022-03-12] MEDS: Minoxidil 2.5 MG TAB PO SCH (08:54)
[2022-03-12] MEDS ORDERED: NIFEdipine XL 60 MG TAB PO SCH (09:00)
[2022-03-12] MEDS: Calcitriol 0.25 MCG CAP PO SCH (10:13)
[2022-03-12] MEDS: Sevelamer Carbonate 800 MG TAB PO SCH ×2 (12:28→17:28)
[2022-03-12] MEDS ORDERED: NIFEdipine XL 30 MG TAB PO SCH (18:00)
[2022-03-12] MEDS: Atorvastatin Calcium 40 MG TAB PO SCH (21:37)
[2022-03-13 04:32] LABS: #Basophils 0.1 thou/uL (0.0-0.2); #Eosinphils 0.2 thou/uL (0.0-0.7); #Lymphocytes 1.4 thou/uL (1.20-3.40); #Monocytes 0.8 thou/uL (0.11-0.59); #Neutrophils 7.4 thou/uL (1.40-6.50); %Basophils 0.7 % (0.0-1.0); %Eosinophils 2.5 % (0.0-10.0); %Lymphocytes 14.2 % (21.0-51.0); %Monocytes 7.8 % (0.0-10.0); %Neutrophils 74.7 % (42.0-75.0); Hemoglobin 8.6 g/dL (14.0-18.0); Mean Corpuscular Hemoglobin 30.8 pg (27.0-31.0); Mean Corpuscular Volume 93.3 fL (78.0-98.0); Mean Platelet Volume 9.8 fL (7.4-10.4); Platelet Count 143 thou/uL (130-400); RBC Distribution Width 13.4 % (11.5-14.5); Red Blood Cell (RBC) Count 2.79 mill/uL (4.70-6.10); White Blood Cell (WBC) Count 9.9 thou/uL (4.8-10.8)
[2022-03-13 04:50] LABS: Anion Gap 14 mmol/L (10-20); BUN (Urea Nitrogen) 71 mg/dL (8.9-20.6); Calc. Creatinine Clearance 18 mL/min (70-130); Calcium 9.1 mg/dL (7.8-10.44); Carbon Dioxide 24 mmol/L (22-29); Chloride 101 mmol/L (98-107); Glucose 109 mg/dL (70-105); Potassium 3.3 mmol/L (3.5-5.1); Sodium 136 mmol/L (136-145)
[2022-03-13] MEDS ORDERED: Tuberculin PPD 0.1 ML VIAL I-DERMAL SCH (09:15)
[2022-03-13 09:29] LABS: Hep B Core Total Ab Non-Reactive (NonReactive); Hep B Core Total Index 0.05 S/CO (0-0.79); Hep B Surf Ag Non-Reactive S/CO (NonReactive); Hep C IgG Ab Non-Reactive (NonReactive); Hep C Index 0.08 S/CO (0-0.79)
[2022-03-13] MEDS: NIFEdipine XL 90 MG TAB PO SCH (09:29)
[2022-03-13] MEDS: Carvedilol 25 MG TAB PO SCH ×2 (09:30→17:00)
[2022-03-13] MEDS: Sevelamer Carbonate 800 MG TAB PO SCH ×3 (09:30→17:00)
[2022-03-13] MEDS: Famotidine 20 MG TAB PO SCH (09:30)
[2022-03-13] MEDS: Minoxidil 2.5 MG TAB PO SCH (09:30)
[2022-03-13] MEDS: Calcitriol 0.25 MCG CAP PO SCH (09:31)
[2022-03-13] MEDS: Nitroglycerin 2% Ointment 1 INCH/1 GM Packet TOP SCH ×2 (09:31→12:40)
[2022-03-13 09:32] LABS: HBSAB Concentration 15.46 mIU/mL; Hep B Surf AB Reactive (NonReactive)
[2022-03-13 12:50] LABS: ANA Symphony (Qualitative) Negative (Negative); ANA Symphony (Quantitative) 0.2 Ratio (< 0.7 Negative); dsDNA IgG Antibody Less than 0.5 IU/mL (<10 Negative)
[2022-03-13] MEDS ORDERED: CEFAZOLIN 2 GM in Sodium Chloride 0.9% 100 ML IVPB SCH (16:00)
[2022-03-13] MEDS: Atorvastatin Calcium 40 MG TAB PO SCH (22:16)
[2022-03-14] MEDS: hydrALAZINE 20 MG/ML VIAL SLOW IVP PRN ×2 (00:05→04:27)
[2022-03-14 04:56] LABS: Anion Gap 14 mmol/L (10-20); BUN (Urea Nitrogen) 70 mg/dL (8.9-20.6); Calc. Creatinine Clearance 18 mL/min (70-130); Calcium 9.1 mg/dL (7.8-10.44); Carbon Dioxide 23 mmol/L (22-29); Chloride 103 mmol/L (98-107); Glucose 105 mg/dL (70-105); Potassium 3.3 mmol/L (3.5-5.1); Sodium 137 mmol/L (136-145)
[2022-03-14] MEDS: Acetaminophen 325 MG TAB PO PRN (04:56)
[2022-03-14] MEDS ORDERED: Heparin 10,000 UNITS/ 10 ML VIAL ONE ×2 (09:03→12:44)
[2022-03-14] MEDS: Carvedilol 25 MG TAB PO SCH ×2 (10:05→17:52)
[2022-03-14] MEDS: Calcitriol 0.25 MCG CAP PO SCH (10:05)
[2022-03-14] MEDS: Sevelamer Carbonate 800 MG TAB PO SCH ×3 (10:05→17:52)
[2022-03-14] MEDS: Famotidine 20 MG TAB PO SCH (10:05)
[2022-03-14] MEDS: Minoxidil 2.5 MG TAB PO SCH (10:06)
[2022-03-14] MEDS: NIFEdipine XL 90 MG TAB PO SCH (10:06)
[2022-03-14] MEDS ORDERED: Fentanyl 100 MCG/2 ML VIAL ONE (10:36)
[2022-03-14] MEDS ORDERED: Midazolam HCl 2 mg/2 ml Vial ONE (10:36)
[2022-03-14] MEDS ORDERED: fentaNYL Citrate/PF 100 MCG/2 ML SYRINGE ONE (12:26)
[2022-03-14] MEDS ORDERED: Propofol 500 MG/50 ML VIAL ONE ×2 (12:27→13:48)
[2022-03-14] MEDS ORDERED: Lidocaine 1% w/Epinephrine 1:100K 30 ML VIAL ONE (12:44)
[2022-03-14] MEDS ORDERED: Bupivacaine PF 0.5% 30 ML VIAL ONE (12:44)
[2022-03-14] MEDS ORDERED: Protamine Sulfate 50 MG/5 ML VIAL ONE ×2 (12:44→14:13)
[2022-03-14] MEDS ORDERED: Heparin 5,000 UNITS/ML VIAL ONE (12:44)
[2022-03-14] MEDS ORDERED: CEFAZOLIN 2 GM VIAL ONE (13:03)
[2022-03-14] MEDS ORDERED: Sodium Chloride 0.9% 100 ML ONE (13:03)
[2022-03-14] MEDS ORDERED: Bupivacaine HCl 0.5%/Epinephrine 1:200,000/PF 30 ml Vial ONE (13:18)
[2022-03-14] MEDS ORDERED: PROPOFOL 200 MG/20 ML VIAL ONE (13:18)
[2022-03-14] MEDS ORDERED: Lidocaine 1% PF 5 ML VIAL ONE (13:18)
[2022-03-14] MEDS ORDERED: Meperidine HCl/PF 25 MG/ML VIAL SLOW IVP PRN (15:03)
[2022-03-14] MEDS ORDERED: Promethazine HCl 25 MG/ML VIAL IM PRN (15:03)
[2022-03-14] MEDS ORDERED: Promethazine HCl 25 MG/ML VIAL IVPB PRN (15:03)
[2022-03-14] MEDS ORDERED: PACU-Morphine 4MG/ML VIAL SLOW IVP PRN (15:03)
[2022-03-14] MEDS ORDERED: Ondansetron HCl/PF 4 MG/2 ML Vial IVP PRN (15:03)
[2022-03-14] MEDS: Atorvastatin Calcium 40 MG TAB PO SCH (20:08)
[2022-03-14] MEDS: traMADol HCl 50 MG TAB PO PRN (20:08)
[2022-03-14] MEDS: cloNIDine 0.1 MG TAB PO SCH (20:09)
[2022-03-15 04:09] LABS: #Basophils 0.1 thou/uL (0.0-0.2); #Eosinphils 0.3 thou/uL (0.0-0.7); #Lymphocytes 1.4 thou/uL (1.20-3.40); #Monocytes 0.8 thou/uL (0.11-0.59); %Basophils 0.5 % (0.0-1.0); %Eosinophils 2.5 % (0.0-10.0); %Lymphocytes 13.6 % (21.0-51.0); %Monocytes 7.5 % (0.0-10.0); Hemoglobin 8.8 g/dL (14.0-18.0); Mean Corpuscular HGB CONC 32.6 g/dL (32.0-36.0); Mean Corpuscular Hemoglobin 30.7 pg (27.0-31.0); Mean Corpuscular Volume 94.2 fL (78.0-98.0); Mean Platelet Volume 9.2 fL (7.4-10.4); Platelet Count 212 thou/uL (130-400); RBC Distribution Width 13.1 % (11.5-14.5); Red Blood Cell (RBC) Count 2.85 mill/uL (4.70-6.10); White Blood Cell (WBC) Count 10.5 thou/uL (4.8-10.8)
[2022-03-15 04:29] LABS: Anion Gap 16 mmol/L (10-20); BUN (Urea Nitrogen) 63 mg/dL (8.9-20.6); Calc. Creatinine Clearance 19 mL/min (70-130); Calcium 9.2 mg/dL (7.8-10.44); Carbon Dioxide 23 mmol/L (22-29); Chloride 101 mmol/L (98-107); Glucose 101 mg/dL (70-105); Potassium 3.9 mmol/L (3.5-5.1); Sodium 136 mmol/L (136-145)
[2022-03-15] MEDS: Calcitriol 0.25 MCG CAP PO SCH (08:47)
[2022-03-15] MEDS: cloNIDine 0.1 MG TAB PO SCH ×2 (08:47→20:10)
[2022-03-15] MEDS: Sevelamer Carbonate 800 MG TAB PO SCH ×3 (08:47→17:24)
[2022-03-15] MEDS: Carvedilol 25 MG TAB PO SCH ×2 (08:47→17:24)
[2022-03-15] MEDS: Minoxidil 2.5 MG TAB PO SCH (08:49)
[2022-03-15] MEDS: NIFEdipine XL 90 MG TAB PO SCH (08:49)
[2022-03-15] MEDS: Famotidine 20 MG TAB PO SCH (08:49)
[2022-03-15] MEDS ORDERED: Heparin 10,000 UNITS/ 10 ML VIAL ONE (08:50)
[2022-03-15] MEDS ORDERED: READ PPD TEST SITE PO SCH (09:00)
[2022-03-15 14:13] LABS: Cytoplasmic (C-ANCA) <1:20 titer (Neg:<1:20); Myeloperoxidase AutoAbs <9.0 U/mL (0.0-9.0); Perinuclear (P-ANCA) <1:20 titer (Neg:<1:20); Proteinase-3 AutoAbs Less than 3.5 U/mL (0.0-3.5)
[2022-03-15] MEDS ORDERED: Tuberculin PPD 0.1 ML VIAL I-DERMAL SCH (16:45)
[2022-03-15] MEDS: traMADol HCl 50 MG TAB PO PRN (17:23)
[2022-03-15] MEDS: Atorvastatin Calcium 40 MG TAB PO SCH (20:10)
[2022-03-16 04:33] LABS: Anion Gap 14 mmol/L (10-20); BUN (Urea Nitrogen) 50 mg/dL (8.9-20.6); Calc. Creatinine Clearance 20 mL/min (70-130); Calcium 9.4 mg/dL (7.8-10.44); Carbon Dioxide 26 mmol/L (22-29); Chloride 101 mmol/L (98-107); Glucose 94 mg/dL (70-105); Potassium 3.6 mmol/L (3.5-5.1); Sodium 137 mmol/L (136-145)
[2022-03-16] MEDS ORDERED: Heparin 10,000 UNITS/ 10 ML VIAL ONE (08:48)
[2022-03-16] MEDS: Carvedilol 25 MG TAB PO SCH ×3 (09:44→17:59)
[2022-03-16] MEDS: Ferrous Sulfate 325 MG TAB PO SCH ×2 (09:44→17:59)
[2022-03-16] MEDS: cloNIDine 0.1 MG TAB PO SCH ×3 (09:44→20:05)
[2022-03-16] MEDS: Sevelamer Carbonate 800 MG TAB PO SCH ×3 (09:44→17:59)
[2022-03-16] MEDS: NIFEdipine XL 90 MG TAB PO SCH (10:17)
[2022-03-16] MEDS ORDERED: Epoetin (ESRD) 10,000 UNITS/ML VIAL SC SCH (12:00)
[2022-03-16] MEDS: Minoxidil 2.5 MG TAB PO SCH (15:35)
[2022-03-16] MEDS: Famotidine 20 MG TAB PO SCH (15:35)
[2022-03-16] MEDS: Calcitriol 0.25 MCG CAP PO SCH (15:35)
[2022-03-16] MEDS: Atorvastatin Calcium 40 MG TAB PO SCH (20:05)
[2022-03-17 04:52] LABS: Anion Gap 14 mmol/L (10-20); BUN (Urea Nitrogen) 38 mg/dL (8.9-20.6); Calc. Creatinine Clearance 22 mL/min (70-130); Calcium 9.3 mg/dL (7.8-10.44); Carbon Dioxide 27 mmol/L (22-29); Chloride 100 mmol/L (98-107); Glucose 110 mg/dL (70-105); Potassium 3.4 mmol/L (3.5-5.1); Sodium 138 mmol/L (136-145)
[2022-03-17] MEDS ORDERED: Heparin 10,000 UNITS/ 10 ML VIAL ONE (08:53)
[2022-03-17] MEDS: cloNIDine 0.1 MG TAB PO SCH ×3 (09:35→20:54)
[2022-03-17] MEDS: Carvedilol 25 MG TAB PO SCH ×2 (09:35→20:45)
[2022-03-17] MEDS: Sevelamer Carbonate 800 MG TAB PO SCH ×3 (09:35→20:45)
[2022-03-17] MEDS: Ferrous Sulfate 325 MG TAB PO SCH ×2 (09:35→20:45)
[2022-03-17] MEDS: Calcitriol 0.25 MCG CAP PO SCH (13:17)
[2022-03-17] MEDS: NIFEdipine XL 90 MG TAB PO SCH (13:17)
[2022-03-17] MEDS: Famotidine 20 MG TAB PO SCH (13:18)
[2022-03-17] MEDS: Minoxidil 2.5 MG TAB PO SCH (16:11)
[2022-03-17] MEDS ORDERED: READ PPD TEST SITE PO SCH (17:00)
[2022-03-17] MEDS: traMADol HCl 50 MG TAB PO PRN (20:44)
[2022-03-17] MEDS: Atorvastatin Calcium 40 MG TAB PO SCH (20:45)
[2022-03-18] MEDS: Minoxidil 2.5 MG TAB PO SCH (09:04)
[2022-03-18] MEDS: Calcitriol 0.25 MCG CAP PO SCH (09:05)
[2022-03-18] MEDS: cloNIDine 0.1 MG TAB PO SCH ×2 (09:05→21:04)
[2022-03-18] MEDS: Sevelamer Carbonate 800 MG TAB PO SCH ×3 (09:05→17:40)
[2022-03-18] MEDS: Carvedilol 25 MG TAB PO SCH ×2 (09:05→17:21)
[2022-03-18] MEDS: Ferrous Sulfate 325 MG TAB PO SCH ×2 (09:05→17:40)
[2022-03-18] MEDS: Famotidine 20 MG TAB PO SCH (09:05)
[2022-03-18] MEDS: NIFEdipine XL 90 MG TAB PO SCH (09:05)
[2022-03-18 12:46] LABS: Anion Gap 12 mmol/L (10-20); BUN (Urea Nitrogen) 31 mg/dL (8.9-20.6); Calc. Creatinine Clearance 22 mL/min (70-130); Calcium 9.8 mg/dL (7.8-10.44); Carbon Dioxide 29 mmol/L (22-29); Chloride 100 mmol/L (98-107); Glucose 98 mg/dL (70-105); Magnesium 2.2 mg/dL (1.6-2.6); Potassium 3.9 mmol/L (3.5-5.1); Sodium 137 mmol/L (136-145)
[2022-03-18] MEDS: Atorvastatin Calcium 40 MG TAB PO SCH (21:04)
[2022-03-19 04:47] LABS: Anion Gap 16 mmol/L (10-20); BUN (Urea Nitrogen) 40 mg/dL (8.9-20.6); Calc. Creatinine Clearance 19 mL/min (70-130); Calcium 9.6 mg/dL (7.8-10.44); Carbon Dioxide 26 mmol/L (22-29); Chloride 100 mmol/L (98-107); Glucose 102 mg/dL (70-105); Potassium 3.5 mmol/L (3.5-5.1); Sodium 138 mmol/L (136-145)
[2022-03-19] MEDS ORDERED: Heparin 10,000 UNITS/ 10 ML VIAL ONE (08:44)
[2022-03-19] MEDS: NIFEdipine XL 90 MG TAB PO SCH (15:08)
[2022-03-19] MEDS: Carvedilol 25 MG TAB PO SCH ×2 (15:09→17:26)
[2022-03-19] MEDS: Sevelamer Carbonate 800 MG TAB PO SCH ×3 (15:09→17:26)
[2022-03-19] MEDS: Ferrous Sulfate 325 MG TAB PO SCH ×2 (15:09→17:26)
[2022-03-19] MEDS: cloNIDine 0.1 MG TAB PO SCH ×2 (15:10→20:10)
[2022-03-19] MEDS: Calcitriol 0.25 MCG CAP PO SCH (15:10)
[2022-03-19] MEDS: Famotidine 20 MG TAB PO SCH (15:11)
[2022-03-19] MEDS: Minoxidil 2.5 MG TAB PO SCH (15:11)
[2022-03-19] MEDS: Atorvastatin Calcium 40 MG TAB PO SCH (20:29)
[2022-03-20] MEDS: Famotidine 20 MG TAB PO SCH (09:08)
[2022-03-20] MEDS: Sevelamer Carbonate 800 MG TAB PO SCH ×3 (09:08→16:47)
[2022-03-20] MEDS: cloNIDine 0.1 MG TAB PO SCH ×2 (09:08→16:47)
[2022-03-20] MEDS: NIFEdipine XL 90 MG TAB PO SCH (09:08)
[2022-03-20] MEDS: Calcitriol 0.25 MCG CAP PO SCH (09:09)
[2022-03-20] MEDS: Ferrous Sulfate 325 MG TAB PO SCH ×2 (09:09→16:47)
[2022-03-20] MEDS: Minoxidil 2.5 MG TAB PO SCH (09:09)
[2022-03-20] MEDS: Carvedilol 25 MG TAB PO SCH ×2 (09:09→16:47)
[2022-03-20 15:50] VITALS: BP 122/64; TEMP 98.9
== END 2022-03-20 19:55 | disposition home or self-care (01) | DRG 673 ==
LOC: ERS 20:18 → CCU 21:32 → 2NO 03-10 13:43
PROVIDERS: ADMIT Internal Medicine; ATTEND Internal Medicine
PROC: 031C0ZF Bypass Left Radial Artery to Lower Arm Vein, Open Approach (ICD-10-PCS; principal; 2022-03-14)
PROC: 0JH63XZ Insertion of Tunneled Vascular Access Device into Chest Subcutaneous Tissue and Fascia, Percutaneous Approach (ICD-10-PCS; 2022-03-14)
PROC: 02HV33Z Insertion of Infusion Device into Superior Vena Cava, Percutaneous Approach (ICD-10-PCS; 2022-03-14)
PROC: B518ZZA Fluoroscopy of Superior Vena Cava, Guidance (ICD-10-PCS; 2022-03-14)
PROC: 5A1D70Z Performance of Urinary Filtration, Intermittent, Less than 6 Hours Per Day (ICD-10-PCS; 2022-03-14)
DX: N17.9 Acute kidney failure, unspecified (principal); I21.A1 Myocardial infarction type 2; I13.2 Hypertensive heart and chronic kidney disease with heart failure and with stage 5 chronic kidney disease, or end stage renal disease; I16.1 Hypertensive emergency; E87.2 Acidosis; E87.1 Hypo-osmolality and hyponatremia; I50.32 Chronic diastolic (congestive) heart failure; N18.6 End stage renal disease; N25.81 Secondary hyperparathyroidism of renal origin; Z20.822 Contact with and (suspected) exposure to COVID-19; E78.5 Hyperlipidemia, unspecified; E87.6 Hypokalemia; D53.9 Nutritional anemia, unspecified; D69.6 Thrombocytopenia, unspecified; E83.39 Other disorders of phosphorus metabolism; Z91.19 Patient's noncompliance with other medical treatment and regimen; Z87.891 Personal history of nicotine dependence; Z83.3 Family history of diabetes mellitus; Z82.49 Family history of ischemic heart disease and other diseases of the circulatory system; Z91.14 Patient's other noncompliance with medication regimen
CPT/HCPCS: 36415; 70450; 71045; 71275; 74174; 76770; 80048; 80053; 80061; 80306; 81001; 82553; 82570; 83036; 83520; 83735; 83880; 83970; 84100; 84156; 84300; 84443; 84484; 85025; 86037; 86038; 86225; 86580; 86704; 87340; 90935; 93005; 93306; 93970; 96365; C1751; C1752; C1776; G0257; J0360; J0690; J1644; J2250; J2704; J2720; J3010; J3475; J3490; J7050; P9047; Q4081; Q9967; S0020; U0002; U0003; U0005

== ENCOUNTER 2022-10-15 15:50 | Emergency (ER) | payer MEDICAID ==
[2022-10-15 17:03] LABS: #Eosinphils 0.3 thou/uL (0.0-0.7); #Lymphocytes 1.9 thou/uL (1.20-3.40); #Monocytes 0.6 thou/uL (0.11-0.59); #Neutrophils 3.8 thou/uL (1.40-6.50); %Basophils 0.7 % (0.0-1.0); %Eosinophils 4.6 % (0.0-10.0); %Lymphocytes 28.8 % (21.0-51.0); %Monocytes 8.5 % (0.0-10.0); %Neutrophils 57.3 % (42.0-75.0); Hemoglobin 12.5 g/dL (14.0-18.0); Mean Corpuscular HGB CONC 33.1 g/dL (32.0-36.0); Mean Corpuscular Hemoglobin 30.1 pg (27.0-31.0); Mean Corpuscular Volume 90.7 fl (78.0-98.0); Mean Platelet Volume 8.2 fL (7.4-10.4); Platelet Count 197 10x3/uL (130-400); RBC Distribution Width 12.8 % (11.5-14.5); Red Blood Cell (RBC) Count 4.15 mill/uL (4.70-6.10); White Blood Cell (WBC) Count 6.7 10x3/uL (4.8-10.8)
[2022-10-15 17:23] LABS: ALT (SGPT) 9 U/L (8-55); AST (SGOT) 14 U/L (5-34); Albumin 4.3 g/dL (3.5-5.0); Alkaline Phosphatase 88 U/L (40-110); Anion Gap 15 mmol/L (10-20); BUN (Urea Nitrogen) 35 mg/dL (8.9-20.6); Bilirubin, Total 0.4 mg/dL (0.2-1.2); Calc. Creatinine Clearance 0 mL/min (70-130); Calcium 9.2 mg/dL (7.8-10.44); Carbon Dioxide 17 mmol/L (22-29); Chloride 113 mmol/L (98-107); Estimated GFR 20; Globulin 2.9 g/dL (2.4-3.5); Glucose 113 mg/dL (70-105); Potassium 4.5 mmol/L (3.5-5.1); Protein, Total 7.2 g/dL (6.0-8.3); Sodium 140 mmol/L (136-145)
== END 2022-10-15 21:05 | disposition left against medical advice (07) ==
LOC: ERS 15:50
DX: E87.20 Acidosis, unspecified (principal); I12.0 Hypertensive chronic kidney disease with stage 5 chronic kidney disease or end stage renal disease; N18.6 End stage renal disease; Z87.891 Personal history of nicotine dependence
CPT/HCPCS: 36415; 71045; 80053; 83735; 83880; 84484; 85025; 93005; 94760

== ENCOUNTER 2024-08-05 13:12 | Inpatient (IN) | payer OTHER ==
[2024-08-05 14:08] LABS: #Basophils 0.04 10x3/uL (0.0-0.2); %Basophils 0.7 % (0.0-1.0); %Eosinophils 3.8 % (0.0-10.0); %Lymphocytes 13.9 % (21.0-51.0); %Monocytes 10.3 % (0.0-10.0); %Neutrophils 71.1 % (42.0-75.0); Hematocrit 33.4 % (42.0-52.0); Hemoglobin 10.5 g/dL (14.0-18.0); Mean Corpuscular HGB CONC 31.4 g/dL (32.0-36.0); Mean Corpuscular Hemoglobin 27.7 pg (27.0-31.0); Mean Corpuscular Volume 88.1 fL (78.0-98.0); Mean Platelet Volume 11.5 fL (7.4-10.4); Platelet Count 191 10x3/uL (130-400); RBC Distribution Width 15.2 % (11.5-14.5); Red Blood Cell (RBC) Count 3.79 mill/uL (4.70-6.10)
[2024-08-05 14:40] LABS: Troponin I 0.123 ng/mL (< 0.028)
[2024-08-05 14:51] LABS: ALT (SGPT) 20 U/L (8-55); AST (SGOT) 25 U/L (5-34); Albumin 3.3 g/dL (3.5-5.0); Alkaline Phosphatase 113 U/L (40-110); Anion Gap 17 mmol/L (10-20); BUN (Urea Nitrogen) 49 mg/dL (8.9-20.6); Bilirubin, Total 0.7 mg/dL (0.2-1.2); Calc. Creatinine Clearance 0 mL/min (70-130); Calcium 9.3 mg/dL (7.8-10.44); Carbon Dioxide 21 mmol/L (22-29); Chloride 109 mmol/L (98-107); Estimated GFR 10; Globulin 2.8 g/dL (2.4-3.5); Glucose 111 mg/dL (70-105); Protein, Total 6.1 g/dL (6.0-8.3); Sodium 142 mmol/L (136-145)
[2024-08-05] MEDS ORDERED: Furosemide 40 MG (4 mL) VIAL ONE (16:13)
[2024-08-05] MEDS ORDERED: Nitroglycerin 2% Ointment 1 INCH/1 GM Packet ONE (16:13)
[2024-08-05 16:31] LABS: Bacteria/HPF None Seen HPF (None Seen); Bilirubin Negative (Negative); Blood, Urine 1+ (Negative); CAUTI Indications for Culture Dysuria,urgency,freq; Clarity Clear (Clear); Glucose, Urine (Dipstick) Normal (Negative); Ketone, Urine Negative (Negative); Leukocyte Negative Leu/uL (Negative); Nitrite Negative (Negative); Protein, Urine (Dipstick) 50 mg/dL (Neg-Trace); RBC/HPF 0-3 HPF (0-3); Specific Gravity, Urine 1.003 (1.002-1.036); Squamous Epithelial None Seen HPF (0-3); Urobilinogen Normal mg/dL (Less than 2); WBC/HPF 0-3 HPF (0-3); pH, Urine 6.5 (5.0-9.0)
[2024-08-05 16:43] LABS: Urine Culture Reflex No No
[2024-08-05] MEDS ORDERED: Acetaminophen 325 MG TAB PO PRN (17:02)
[2024-08-05] MEDS ORDERED: Senokot S 8.6-50 MG TAB PO PRN (17:02)
[2024-08-05] MEDS ORDERED: Ondansetron PF 4 MG/2 ML Vial IVP PRN (17:02)
[2024-08-05] MEDS ORDERED: Calcium Carbonate 500 MG ChewTAB PO PRN (17:02)
[2024-08-05] MEDS ORDERED: niCARdipine 25 MG/10 ML SDV ONE ×2 (17:06→19:48)
[2024-08-05] MEDS ORDERED: Aspirin Chewable 81 MG TAB ONE (17:07)
[2024-08-05] MEDS ORDERED: niCARdipine 25 MG in Sodium Chloride 0.9% 250 ML 250 ML IVPB SCH ×2 (17:15→20:58)
[2024-08-05] MEDS ORDERED: Labetalol HCl 100 MG/20 ML VIAL ONE (18:06)
[2024-08-05 20:59] VITALS: BMI 35.5
[2024-08-05] MEDS ORDERED: niCARdipine 40MG In NaCl 40 MG/200 ML BAG IVPB SCH (21:15)
[2024-08-05] MEDS: Nitroglycerin 2% Ointment 1 INCH/1 GM Packet TOP SCH (21:34)
[2024-08-05] MEDS: Atorvastatin Calcium 40 MG TAB PO SCH (21:34)
[2024-08-05] MEDS: cloNIDine 0.1 MG TAB PO SCH (21:35)
[2024-08-05 21:46] LABS: Troponin I 0.119 ng/mL (< 0.028)
[2024-08-05] MEDS: niCARdipine 50 MG, Admixture Fee 1 EACH in Sodium Chloride 0.9% 250 ML 230 ML IV SCH (21:50)
[2024-08-05] MEDS: Minoxidil 10 MG TAB PO SCH (22:12)
[2024-08-05] MEDS: Labetalol HCl 100 MG TAB PO SCH (22:12)
[2024-08-05] MEDS: NIFEdipine XL 60 MG ER.TAB PO SCH (22:12)
[2024-08-06 03:40] LABS: #Basophils 0.05 10x3/uL (0.0-0.2); %Basophils 0.9 % (0.0-1.0); %Eosinophils 5.3 % (0.0-10.0); %Lymphocytes 19.7 % (21.0-51.0); %Monocytes 13.6 % (0.0-10.0); %Neutrophils 60.1 % (42.0-75.0); Hematocrit 32.7 % (42.0-52.0); Hemoglobin 10.1 g/dL (14.0-18.0); Mean Corpuscular HGB CONC 30.9 g/dL (32.0-36.0); Mean Corpuscular Volume 87.4 fL (78.0-98.0); Mean Platelet Volume 11.2 fL (7.4-10.4); Platelet Count 173 10x3/uL (130-400); RBC Distribution Width 15.2 % (11.5-14.5); Red Blood Cell (RBC) Count 3.74 mill/uL (4.70-6.10)
[2024-08-06 04:10] LABS: Phosphorus 4.1 mg/dL (2.3-4.7)
[2024-08-06 04:17] LABS: ALT (SGPT) 19 U/L (8-55); AST (SGOT) 23 U/L (5-34); Albumin 3.2 g/dL (3.5-5.0); Alkaline Phosphatase 105 U/L (40-110); Anion Gap 15 mmol/L (10-20); BUN (Urea Nitrogen) 47 mg/dL (8.9-20.6); Bilirubin, Total 0.8 mg/dL (0.2-1.2); Calc. Creatinine Clearance 22 mL/min (70-130); Calcium 8.8 mg/dL (7.8-10.44); Carbon Dioxide 20 mmol/L (22-29); Chloride 111 mmol/L (98-107); Estimated GFR 9; Globulin 2.6 g/dL (2.4-3.5); Glucose 100 mg/dL (70-105); Magnesium 1.9 mg/dL (1.6-2.6); Potassium 4.6 mmol/L (3.5-5.1); Protein, Total 5.8 g/dL (6.0-8.3); Sodium 141 mmol/L (136-145)
[2024-08-06] MEDS: hydrALAZINE 20 MG/ML VIAL SLOW IVP SCH (04:43)
[2024-08-06] MEDS ORDERED: Carvedilol 25 MG TAB PO SCH (08:00)
[2024-08-06] MEDS: Labetalol HCl 100 MG TAB PO SCH (08:59)
[2024-08-06] MEDS: NIFEdipine XL 60 MG ER.TAB PO SCH (08:59)
[2024-08-06] MEDS ORDERED: Minoxidil 2.5 MG TAB PO SCH (09:00)
[2024-08-06] MEDS: Calcitriol 0.25 MCG CAP PO SCH (09:00)
[2024-08-06] MEDS: Enoxaparin 30 MG (0.3 mL) SYRINGE SC SCH (09:00)
[2024-08-06] MEDS ORDERED: NIFEdipine XL 90 MG ER.TAB PO SCH (09:00)
[2024-08-06] MEDS: Aspirin 81 mg Enteric Coated Tablet PO SCH (09:01)
[2024-08-06] MEDS: Sevelamer Carbonate 800 MG TAB PO SCH (09:01)
[2024-08-06] MEDS: Minoxidil 10 MG TAB PO SCH (09:43)
[2024-08-06] MEDS: Torsemide 100 MG TAB PO SCH (17:10)
[2024-08-07 08:30] LABS: #Basophils 0.04 10x3/uL (0.0-0.2); %Basophils 0.8 % (0.0-1.0); %Eosinophils 4.7 % (0.0-10.0); %Lymphocytes 17.5 % (21.0-51.0); %Monocytes 12.8 % (0.0-10.0); Hematocrit 31.8 % (42.0-52.0); Hemoglobin 9.8 g/dL (14.0-18.0); Mean Corpuscular HGB CONC 30.8 g/dL (32.0-36.0); Mean Corpuscular Hemoglobin 27.1 pg (27.0-31.0); Mean Corpuscular Volume 88.1 fL (78.0-98.0); Mean Platelet Volume 11.1 fL (7.4-10.4); Platelet Count 175 10x3/uL (130-400); RBC Distribution Width 15.1 % (11.5-14.5); Red Blood Cell (RBC) Count 3.61 mill/uL (4.70-6.10)
[2024-08-07 08:46] LABS: Anion Gap 16 mmol/L (10-20); BUN (Urea Nitrogen) 50 mg/dL (8.9-20.6); Calc. Creatinine Clearance 23 mL/min (70-130); Calcium 8.9 mg/dL (7.8-10.44); Carbon Dioxide 21 mmol/L (22-29); Chloride 109 mmol/L (98-107); Estimated GFR 10; Glucose 124 mg/dL (70-105); Potassium 4.5 mmol/L (3.5-5.1); Sodium 141 mmol/L (136-145)
[2024-08-07] MEDS: Torsemide 20 MG TAB PO SCH (09:46)
[2024-08-07] MEDS ORDERED: Epoetin (ESRD) 10,000 UNITS/ML VIAL SC SCH (10:45)
[2024-08-07 11:56] LABS: Iron 28 ug/dL (65-175); Iron Binding Capacity, Total 270 mcg/dL (261-462)
[2024-08-07] MEDS: EPOETIN ALFA-EPBX (ESRD) 10,000 UNITS/ML VIAL SC SCH (17:47)
[2024-08-07] MEDS: Sodium Ferric Gluconate 250 MG in Sodium Chloride 0.9% 250 ML 250 ML IVPB SCH (17:49)
[2024-08-08 04:16] LABS: #Basophils 0.06 10x3/uL (0.0-0.2); %Basophils 1.2 % (0.0-1.0); %Monocytes 13.8 % (0.0-10.0); %Neutrophils 59.8 % (42.0-75.0); Hematocrit 31.7 % (42.0-52.0); Mean Corpuscular HGB CONC 31.5 g/dL (32.0-36.0); Mean Corpuscular Hemoglobin 27.6 pg (27.0-31.0); Mean Corpuscular Volume 87.6 fL (78.0-98.0); Mean Platelet Volume 11.5 fL (7.4-10.4); Platelet Count 198 10x3/uL (130-400); RBC Distribution Width 15.1 % (11.5-14.5); Red Blood Cell (RBC) Count 3.62 mill/uL (4.70-6.10)
[2024-08-08 04:21] LABS: Anion Gap 14 mmol/L (10-20); BUN (Urea Nitrogen) 55 mg/dL (8.9-20.6); Calc. Creatinine Clearance 23 mL/min (70-130); Carbon Dioxide 22 mmol/L (22-29); Chloride 110 mmol/L (98-107); Estimated GFR 10; Glucose 97 mg/dL (70-105); Potassium 4.5 mmol/L (3.5-5.1); Sodium 141 mmol/L (136-145)
[2024-08-08] MEDS: Sodium Ferric Gluconate 250 MG in Sodium Chloride 0.9% 250 ML 250 ML IVPB SCH (05:53)
[2024-08-08 07:46] VITALS: BP 144/80; TEMP 97.7
[2024-08-08] MEDS: Torsemide 20 MG TAB PO SCH (08:11)
== END 2024-08-08 11:40 | disposition home or self-care (01) | DRG 291 ==
LOC: SJX 13:12 → SUATTDRO 13:12 → CCU 17:02 → 2NO 08-06 15:57
PROVIDERS: ADMIT Internal Medicine; ATTEND Internal Medicine
DX: I13.0 Hypertensive heart and chronic kidney disease with heart failure and stage 1 through stage 4 chronic kidney disease, or unspecified chronic kidney disease (principal); I50.33 Acute on chronic diastolic (congestive) heart failure; I16.1 Hypertensive emergency; E87.20 Acidosis, unspecified; N18.5 Chronic kidney disease, stage 5; N25.81 Secondary hyperparathyroidism of renal origin; N17.9 Acute kidney failure, unspecified; Z86.73 Personal history of transient ischemic attack (TIA), and cerebral infarction without residual deficits; E66.01 Morbid (severe) obesity due to excess calories; F17.210 Nicotine dependence, cigarettes, uncomplicated; Z91.148 Patient's other noncompliance with medication regimen for other reason; Z68.35 Body mass index [BMI] 35.0-35.9, adult; D63.1 Anemia in chronic kidney disease; E83.39 Other disorders of phosphorus metabolism
CPT/HCPCS: 36415; 36416; 71045; 80048; 80053; 81001; 82728; 83540; 83550; 83735; 83880; 84100; 84443; 84484; 85025; 93005; 93306; 93970; 96374; 96375; J0360; J1650; J1940; J2916; J7050; Q5105